=== PATIENT | female | born 1960 | race Caucasian/White ===

== ENCOUNTER 2018-08-26 05:43 | Emergency (ER) | payer MEDICAID ==
[~2018-08-26] VITALS: Ht 160 cm; Wt 67.9 kg
[~2018-08-26 05:43] MED LIST: ALBU8HFA PO; PRED50TA PO
[2018-08-26 05:45] VITALS: BP 132/88
[2018-08-26] MEDS ORDERED: ipratropium/albuterol 3ml nebule NEB ONE (05:55)
[2018-08-26] MEDS ORDERED: predniSONE 20 mg tablet PO ONE (06:40)
[2018-08-26] MEDS ORDERED: PRED20TA PO (07:30)
== END 2018-08-26 07:40 | disposition home or self-care (01) ==
LOC: ER 05:44
DX: J45.901 Unspecified asthma with (acute) exacerbation (principal); J44.9 Chronic obstructive pulmonary disease, unspecified; E11.9 Type 2 diabetes mellitus without complications; F17.200 Nicotine dependence, unspecified, uncomplicated; Z88.5 Allergy status to narcotic agent; Z88.8 Allergy status to other drugs, medicaments and biological substances; Z79.899 Other long term (current) drug therapy
CPT/HCPCS: 94640; 94760; 99283; J7512

== ENCOUNTER 2022-02-08 07:16 | Emergency (ER) | payer MEDICARE, MEDICAID ==
[~2022-02-08] VITALS: Ht 162.6 cm; Wt 63.6 kg
[2022-02-08 07:44] VITALS: BP 128/65
[2022-02-08] MEDS ORDERED: ipratropium/albuterol 3ml nebule NEB ONE (07:50)
[2022-02-08] MEDS ORDERED: albuterol 2.5 MG/3 ML nebule CONTNEB PRN (08:10)
[2022-02-08] MEDS ORDERED: predniSONE 20 mg tablet PO ONE (08:10)
[2022-02-08] MEDS ORDERED: azithromycin 250mg tablet PO ONE (10:00)
[2022-02-08] MEDS ORDERED: AZIT250T2 PO (10:07)
[2022-02-08] MEDS ORDERED: PRED20TA PO ×2 (10:07→10:08)
[2022-02-08] MEDS ORDERED: AZIT250T PO (10:08)
== END 2022-02-08 10:20 | disposition home or self-care (01) ==
LOC: ER 07:16
DX: J44.1 Chronic obstructive pulmonary disease with (acute) exacerbation (principal); J40 Bronchitis, not specified as acute or chronic; R50.9 Fever, unspecified; R06.02 Shortness of breath; R05.9 Cough, unspecified; E11.9 Type 2 diabetes mellitus without complications; F17.200 Nicotine dependence, unspecified, uncomplicated; Z88.5 Allergy status to narcotic agent; Z88.8 Allergy status to other drugs, medicaments and biological substances; Z79.2 Long term (current) use of antibiotics; Z79.899 Other long term (current) drug therapy
CPT/HCPCS: 71045; 94640; 94644; 99285; J7512; 94760; A7015

== ENCOUNTER 2022-09-02 08:38 | Day surgery (SDC) | payer MEDICARE, MEDICAID ==
[~2022-09-02] VITALS: Ht 152.4 cm; Wt 60.8 kg
[2022-09-02] MEDS ORDERED: LIDOcaine 1% 30ml preserv. free vial SQ STA (08:46)
[2022-09-02 09:15] VITALS: BP 125/69
[2022-09-02] MEDS ORDERED: OXYGEN NASALCANN (09:32)
[2022-09-02] MEDS ORDERED: ATR0.5NEB IH (09:32)
[2022-09-02] MEDS ORDERED: BUPR1PAT TOP (09:32)
[2022-09-02] MEDS ORDERED: FLUT1BLS4 INH (09:32)
[2022-09-02] MEDS ORDERED: HYDR200T84 PO (09:32)
[2022-09-02] MEDS ORDERED: LORazepam 0.5 MG tablet PO PRN (09:40)
--- NOTE | 2022-09-02 09:47 | NUR ---
Pt extremely anxious about procedure. She was prescribed ativan prior to the procedure but didn't take it because she states "the roundsman told her she could have sedation". She is very upset that she's not receiving moderate sedation. Spoke with Sotero LILLY and he ordered an ativan for the patient.
[2022-09-02 10:45] VITALS: BP 142/69
[2022-09-02 10:55] VITALS: BP 127/68
[2022-09-02 11:10] VITALS: BP 136/70
[2022-09-02 11:25] VITALS: BP 132/68
== END 2022-09-02 11:25 | disposition home or self-care (01) ==
LOC: SSTAY O 08:38
PROVIDERS: ATTEND Radiology Vascular & Interventional Radiology
DX: K11.8 Other diseases of salivary glands (principal); E04.2 Nontoxic multinodular goiter; J44.9 Chronic obstructive pulmonary disease, unspecified; E11.9 Type 2 diabetes mellitus without complications; F17.200 Nicotine dependence, unspecified, uncomplicated; Z90.710 Acquired absence of both cervix and uterus; Z90.89 Acquired absence of other organs; Z88.5 Allergy status to narcotic agent; Z88.8 Allergy status to other drugs, medicaments and biological substances; Z79.51 Long term (current) use of inhaled steroids; Z79.899 Other long term (current) drug therapy; Z91.041 Radiographic dye allergy status
CPT/HCPCS: 10005; 10006; J3490; 36430; 60100; 76942; 88173